=== PATIENT | female | born 1965 | race Caucasian/White ===

== ENCOUNTER → 2016-10-01 | Outpatient (CLI) | payer OTHER, MEDICARE ==
[~2016-10-01] MED LIST: ASPIR 8181 MG PO; CRESTOR40 MG PO; CYANOCOBALAM1000 MCG PO; FUROSEMIDE20 MG PO; LYRICA75 MG PO; PLAVIX75 MG PO; PRINIVIL10 MG PO; Plavix PO; SIMVASTATIN40 MG PO; TOPROL XL25 MG PO; TOPROL XL50 MG PO; TRAMADOL HCL50 MG PO; Toprol XL PO; VICODIN,LORT1 TABLET PO; VITAMIN D-3 401 EACH PO; ZESTRIL10 MG PO; ZOFRAN4 MG PO; Zestril,Prinivil PO
== END | disposition home or self-care (01) ==
LOC: NUC 08:09
DX: R94.8 Abnormal results of function studies of other organs and systems (principal)
CPT/HCPCS: 78264; A9541

== ENCOUNTER 2017-08-13 12:42 | Emergency (ER) | payer OTHER, MEDICARE ==
[~2017-08-13] VITALS: Ht 175.3 cm; Wt 87.8 kg
[2017-08-13 13:44] LABS: HEMATOCRIT 43.9 % (36.0-46.0); MCH 29.9 PG (29.0-34.0); MCHC 34.2 G/DL (30.0-36.0); MCV 87.5 FL (83-99); PLATELET COUNT 272 K/uL (156-360); RBC DIS.WIDTH-CV 12.8 % (11.8-14.6); RBC DIS.WIDTH-SD 40.8 % (39-53); RED BLOOD COUNT 5.02 M/uL (3.80-5.20); WHITE BLOOD COUNT 7.2 K/uL (4.1-10.2)
[2017-08-13 13:53] LABS: CHLORIDE 104 mEq/L (99-109); POTASSIUM 4.2 mEq/L (3.7-5.4); SODIUM 141 mEq/L (136-147)
[2017-08-13 13:55] LABS: GLUCOSE 97 mg/dL (70-99)
[2017-08-13 13:59] LABS: CREATININE 0.7 mg/dL (0.6-1.3); GFR ESTIMATE (CALCULATED) > 59 mL/min/
[2017-08-13 14:00] LABS: UREA NITROGEN (BUN) 9 mg/dL (9-23)
[2017-08-13 14:09] LABS: TROP-I INTERPRETATION NEGATIVE; TROPONIN-I < 0.01 ng/mL (0.0-0.30)
[2017-08-13 17:55] LABS: TROP-I INTERPRETATION NEGATIVE; TROPONIN-I < 0.01 ng/mL (0.0-0.30)
[2017-08-13 18:49] VITALS: BP 135/89
== END 2017-08-13 18:51 | disposition home or self-care (01) ==
LOC: EME 12:42
PROVIDERS: Physician Assistant
DX: R07.9 Chest pain, unspecified (principal); K21.9 Gastro-esophageal reflux disease without esophagitis; I10 Essential (primary) hypertension; E78.5 Hyperlipidemia, unspecified; I25.2 Old myocardial infarction; F17.200 Nicotine dependence, unspecified, uncomplicated; Z86.73 Personal history of transient ischemic attack (TIA), and cerebral infarction without residual deficits; Z95.810 Presence of automatic (implantable) cardiac defibrillator; Z79.82 Long term (current) use of aspirin; Z79.02 Long term (current) use of antithrombotics/antiplatelets; Z88.0 Allergy status to penicillin
CPT/HCPCS: 71046; 80048; 84484; 85027; 93005; 99281; 99284